=== PATIENT | female | born 1930 | race Caucasian/White ===

== ENCOUNTER 2017-01-06 15:45 | Emergency (ER) | payer MEDICARE, OTHER ==
[2017-01-06] MEDS ORDERED: Sodium Chloride 0.9% 1,000 ML IV SCH (16:30)
[2017-01-06] MEDS ORDERED: Pantoprazole 40 MG Vial IVPUSH ONE (16:41)
[2017-01-06] MEDS ORDERED: Ondansetron 4 MG/2 ML SDV IM ONE (16:41)
[2017-01-06] MEDS ORDERED: Morphine 2 MG/ML Syringe IVPUSH ONE (16:45)
--- NOTE | 2017-01-06 16:57 | EDM.PDOC ---
ED HPI GENERAL MEDICAL PROBLEM - General Chief Complaint: General Stated Complaint: patient is weak, dizzy, confused, c/o nausea and vomiting, abdominal pain, cough, has been ill for several days. frontal headache Accompanied by daughter. Time Seen by Provider: 01/06/17 16:30 Source of Information: Reports: Patient, EMS, Family History Limitations: Reports: Other (confused) - History of Present Illness INITIAL COMMENTS - FREE TEXT/NARRATIVE: Daughter in law is uncertain how long the patient has been ill. Patient is unable to answer accurately due to confusion. Family states patient was well when seen one week ago. Onset: Gradual Duration: Day(s):, Getting Worse Location: Reports: Head, Abdomen, Generalized Quality: Reports: Throbbing (headache) Severity: Severe Improves with: Reports: None Worsens with: Reports: None Associated Symptoms: Reports: Confusion, Cough, cough w sputum, Headaches, Loss of Appetite, Malaise, Nausea/Vomiting, Weakness. 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 Denies: Fever, Chills HEENT: Reports: Glasses, Other (frontal headache for the last few 01/23) Respiratory: Reports: Cough, Sputum (brownish phlegm) Cardiovascular: Reports: Lightheadedness. Denies: Chest Pain, Dyspnea on Exertion, Edema, Palpitations Endocrine: Reports: No Symptoms GI/Abdominal: Reports: Abdominal Pain, Anorexia, Diarrhea, Decreased Appetite, Nausea, Vomiting, Other (patient had feeding tube place several months ago) : Reports: No Symptoms Musculoskeletal: Reports: No Symptoms Skin: Reports: Dryness, Rash, Erythema, Lesions, Other (patient has significant scalp hair loss with crust and scales on the scalp, redness/ dryness of the skin over much of the body and scattered, dry circular scaly patches throughout her body) Neurological: Reports: Confusion (difficulty answering questions coherently), Headache, Weakness Psychiatric: Reports: Confusion Hematologic/Lymphatic: Reports: No Symptoms Immunologic: Reports: No Symptoms ED EXAM, GENERAL - Physical Exam Exam: See Below Exam Limited By: No Limitations General Appearance: Alert, WD/WN, Mild Distress (secondary to headache) Eye Exam: Bilateral Eye: EOMI, PERRL Ear Exam: Bilateral Ear: Auricle Normal, Canal Normal, TM normal Nose: Normal Inspection, Normal Mucosa, No Blood Throat/Mouth: Other (tounge and lips dry with whitish coating, nor pharyngeal erythema noted) Head: Atraumatic, Normocephalic Neck: Normal Inspection, Supple, Non-Tender, Full Range of Motion Respiratory/Chest: No Respiratory Distress, No Accessory Muscle Use, Chest Non- Tender, Decreased Breath Sounds, Rales, Other (very dimished with bibasilar rales, especially left side) Cardiovascular: Normal Peripheral Pulses, Regular Rate, Rhythm, No Edema, No Gallop, No JVD, No Murmur, No Rub Peripheral Pulses: 1+: Dorsalis Pedis (L), Dorsalis Pedis (R), 2+: Radial (L), Radial (R) GI/Abdominal: Distended (hypoactive bowel sounds and generalized abdominal tenderness with palpation, tympany with percussion), Tender (Female) Exam: Deferred Rectal (Female) Exam: Deferred Back Exam: Normal Inspection Extremities: Normal Inspection, Non-Tender, No Pedal Edema Neurological: Alert, CN II-XII Intact, No Motor/Sensory Deficits, Confused, Disoriented Psychiatric: Normal Affect, Normal Mood Skin Exam: Warm, Dry, Erythema, Rash, Other (patient has significant hair loss diffusely on scalp with thick adherent scales over most of scalp. Has rashy reddened facial skin as well on arms and legs. Has oval circular dry scaly rashes on lower extremities) Course - Vital Signs Last Recorded V/S: Last Vital Signs Temp 36.8 C 01/06/17 19:30 Pulse 78 01/06/17 19:30 Resp 16 01/06/17 19:30 BP 118/57 L 01/06/17 19:30 Pulse Ox 97 01/06/17 19:30 - Orders/Labs/Meds Orders: Active Orders 24 hr Category Date Time Status EKG 12 Lead [EKG Documentation Completion] [RC] STAT Care 01/06/17 16:53 Ordered Abdomen Pelvis wo Cont [CT] Stat Exams 01/06/17 17:22 Taken Chest 1V Frontal [CR] Stat Exams 01/06/17 16:50 Taken Head wo Cont [CT] Stat Exams 01/06/17 17:24 Taken Sodium Chloride 0.9% [Normal Saline] 1,000 ml Med 01/06/17 16:30 Active IV ASDIRECTED Medication Orders Sodium Chloride (Normal Saline) 1,000 mls @ 250 mls/hr IV ASDIRECTED EDUARDO Last Admin: 01/06/17 16:20 Dose: 250 mls/hr Labs: Laboratory Tests 01/06/17 01/06/17 01/06/17 Range/Units 17:00 17:00 17:00 WBC 10.4 H (4.0-10.0) x10^3/uL RBC 3.95 L (4.00-5.50) x10^6/uL Hgb 10.5 L (12.0-16.0) g/dL Hct 35.4 (33.0-47.0) % MCV 89.6 (78.0-93.0) fL MCH 26.6 (26.0-32.0) pg MCHC 29.7 L (32.0-36.0) g/dL RDW Coeff of Maci 17.4 H (10.0-15.0) % Plt Count 425 H (130-400) x10^3/uL Sodium 149 H (136-145) mmol/L Potassium 4.0 (3.5-5.1) mmol/L Chloride 112 H (98-107) mmol/L Carbon Dioxide 30 (21-32) mmol/L BUN 44 H (7-18) mg/dL Creatinine 0.9 (0.55-1.02) mg/dL Est Cr Clr Drug Dosing 32.23 mL/min Estimated GFR (MDRD) 59 Glucose 139 H (74-106) mg/dL Calcium 9.7 (8.5-10.1) mg/dL Corrected Calcium 10.82 H (8.5-10.1) mg/dL Total Bilirubin 0.2 (0.2-1.0) mg/dL AST 34 (15-37) U/L ALT 37 (14-59) U/L Alkaline Phosphatase 85 (46-116) U/L Creatine Kinase 63 (26-192) U/L Creatine Kinase Index 1.6 (0.0-4.0) % CK-MB (CK-2) 1.0 (0.0-3.6) ng/mL Troponin I < 0.017 (<=0.056) ng/mL Total Protein 8.6 H (6.4-8.2) g/dL Albumin 2.6 L (3.4-5.0) g/dL Globulin 6.0 Albumin/Globulin Ratio 0.43 Amylase 81 (25-115) U/L Lipase 350 (73-393) U/L Urine Color (YELLOW) Urine Appearance (CLEAR) Urine pH (5.0-8.0) Ur Specific [place] Urine Protein (NEGATIVE) mg/dL Urine Glucose (UA) (NEGATIVE) mg/dL Urine Ketones (NEGATIVE) mg/dL Urine Occult Blood (NEGATIVE) Urine Nitrite (NEGATIVE) Urine Bilirubin (NEGATIVE) Urine Urobilinogen (0.2) EU/dL Ur Leukocyte Esterase (NEGATIVE) Urine RBC (NOT SEEN) /HPF Urine WBC (NOT SEEN) /HPF Ur Squamous Epith Cells (NEGATIVE) /HPF Urine Bacteria (NEGATIVE) /HPF Urine Mucus (NEGATIVE) /LPF 01/06/17 Range/Units 18:45 WBC (4.0-10.0) x10^3/uL RBC (4.00-5.50) x10^6/uL Hgb (12.0-16.0) g/dL Hct (33.0-47.0) % MCV (78.0-93.0) fL MCH (26.0-32.0) pg MCHC (32.0-36.0) g/dL RDW Coeff of Maci (10.0-15.0) % Plt Count (130-400) x10^3/uL Sodium (136-145) mmol/L Potassium (3.5-5.1) mmol/L Chloride (98-107) mmol/L Carbon Dioxide (21-32) mmol/L BUN (7-18) mg/dL Creatinine (0.55-1.02) mg/dL Est Cr Clr Drug Dosing mL/min Estimated GFR (MDRD) Glucose (74-106) mg/dL Calcium (8.5-10.1) mg/dL Corrected Calcium (8.5-10.1) mg/dL Total Bilirubin (0.2-1.0) mg/dL AST (15-37) U/L ALT (14-59) U/L Alkaline Phosphatase (46-116) U/L Creatine Kinase (26-192) U/L Creatine Kinase Index (0.0-4.0) % CK-MB (CK-2) (0.0-3.6) ng/mL Troponin I (<=0.056) ng/mL Total Protein (6.4-8.2) g/dL Albumin (3.4-5.0) g/dL Globulin Albumin/Globulin Ratio Amylase (25-115) U/L Lipase (73-393) U/L Urine Color Yellow (YELLOW) Urine Appearance Cloudy H (CLEAR) Urine pH 5.5 (5.0-8.0) Ur Specific [place] 1.025 Urine Protein >=300 H (NEGATIVE) mg/dL Urine Glucose (UA) Negative (NEGATIVE) mg/dL Urine Ketones Negative (NEGATIVE) mg/dL Urine Occult Blood Moderate H (NEGATIVE) Urine Nitrite Negative (NEGATIVE) Urine Bilirubin Negative (NEGATIVE) Urine Urobilinogen 0.2 (0.2) EU/dL Ur Leukocyte Esterase Moderate H (NEGATIVE) Urine RBC 20-30 H (NOT SEEN) /HPF Urine WBC 30-40 H (NOT SEEN) /HPF Ur Squamous Epith Cells Few H (NEGATIVE) /HPF Urine Bacteria Moderate H (NEGATIVE) /HPF Urine Mucus Not seen (NEGATIVE) /LPF Meds: Medications Generic Name Dose Route Start Last Admin Trade Name Freq PRN Reason Stop Dose Admin Sodium Chloride 1,000 mls @ 250 mls/hr 01/06/17 16:30 01/06/17 16:20 Normal Saline IV 250 mls/hr ASDIRECTED EDUARDO Administration Discontinued Medications Generic Name Dose Route Start Last Admin Trade Name Freq PRN Reason Stop Dose Admin Diphenhydramine HCl 12.5 mg 01/06/17 20:14 Benadryl IVPUSH 01/06/17 20:15 ONETIME ONE Morphine Sulfate 1 mg 01/06/17 16:45 01/06/17 16:55 Morphine IVPUSH 01/06/17 16:46 1 mg ONETIME ONE Administration Ondansetron HCl 4 mg 01/06/17 17:02 01/06/17 17:03 Zofran IVPUSH 01/06/17 17:03 4 mg ONETIME ONE Administration Pantoprazole Sodium 40 mg 01/06/17 16:41 01/06/17 16:59 Protonix Iv IVPUSH 01/06/17 16:42 40 mg ONETIME ONE Administration - Radiology Interpretation Free Text/Narrative:: Head CT done for severe headache and confusion showed no evidence of bleed. CT of abdomen and pelvis showed evidence of severe small bowel obstruction as read by radiology. - Re-Assessments/Exams Free Text/Narrative Re-Assessment/Exam: 01/06/17 20:21 Patient examined and evaluated. Labs and diagnostics done. Patient given an IV fluid bolus and zofran, protonix and 1 mg morphine with good relief of headache. 01/06/17 20:[address] [facility] and discussed the case with Dr Barillas who agreed to accept patient in transfer. Patient will be transported via ALS ambulance in stable condition but with potential to deteriorate. Vitals remained stable in ER. Patient headache pain down to 3/10 prior to transfer. Labs reviewed and noted possible UTI but has no fever, no increased WBC and no symptoms so will not start antibiotics as may be asymptomatic bacteriuria. Transfer discussed with patient and family as well as risks and benefits. they agreed with plan and verbalized understanding. Departure - Departure Time of Disposition: 20:22 Disposition: DC/Tfer to Acute Hospital 02 Condition: Fair Clinical Impression: SBO (small bowel obstruction), Dehydration Nausea & vomiting Qualifiers: Vomiting type: unspecified Vomiting Intractability: unspecified Qualified Code( s): R11.2 - Nausea with vomiting, unspecified Abdominal pain Qualifiers: Abdominal location: generalized Qualified Code(s): R10.84 - Generalized abdominal pain - Discharge Information Referrals: Sheryl Siegel DO [Primary Care Provider] - Forms: ED Department Discharge, Interfacility Transfer EMTALA - My Orders Last 24 Hours: My Active Orders 01/06/17 16:30 Sodium Chloride 0.9% [Normal Saline] 1,000 ml IV ASDIRECTED 01/06/17 16:50 Chest 1V Frontal [CR] Stat 01/06/17 16:53 EKG 12 Lead [EKG Documentation Completion] [RC] STAT 01/06/17 17:22 Abdomen Pelvis wo Cont [CT] Stat 01/06/17 17:24 Head wo Cont [CT] Stat - Assessment/Plan Last 24 Hours: My Active Orders 01/06/17 16:30 Sodium Chloride 0.9% [Normal Saline] 1,000 ml IV ASDIRECTED 01/06/17 16:50 Chest 1V Frontal [CR] Stat 01/06/17 16:53 EKG 12 Lead [EKG Documentation Completion] [RC] STAT 01/06/17 17:22 Abdomen Pelvis wo Cont [CT] Stat 01/06/17 17:24 Head wo Cont [CT] Stat
[2017-01-06] MEDS ORDERED: Ondansetron 4 MG/2 ML SDV IVPUSH ONE (17:02)
[2017-01-06 17:40] LABS: CHLORIDE,CL 112 mmol/L (98-107); SODIUM,NA 149 mmol/L (136-145)
[2017-01-06 19:54] VITALS: BP 118/57
[2017-01-06] MEDS ORDERED: diphenhydrAMINE 50 MG/ML SDV IVPUSH ONE (20:14)
[2017-01-06] MEDS ORDERED: Lactated Ringers 1,000 ML IV SCH (20:30)
== END 2017-01-06 20:45 | disposition short-term general hospital (02) ==
LOC: VM.ED 15:45
DX: K56.60 Unspecified intestinal obstruction (principal); E86.0 Dehydration; E03.9 Hypothyroidism, unspecified; Z88.1 Allergy status to other antibiotic agents
CPT/HCPCS: 36415; 70450; 71010; 74176; 80053; 81001; 82150; 82550; 82553; 83690; 84484; 85027; 96361; 96374; 96375; 99285; C9113; J1200; J2270; J2405; J7030; J7120